=== PATIENT | male | born 2000 | race Caucasian/White ===

== ENCOUNTER 2021-08-19 10:49 | Emergency (ER) | payer MEDICAID, OTHER ==
[2021-08-19] MEDS ORDERED: Ibuprofen 600 MG Tab PO ONE (11:46)
== END 2021-08-19 12:10 | disposition home or self-care (01) ==
LOC: DL.ED 10:49
DX: M25.562 Pain in left knee (principal)
CPT/HCPCS: 73562; 99283; A9270